=== PATIENT | female | born 1995 | race Caucasian/White ===

== ENCOUNTER 2021-09-06 08:07 | Outpatient (REF) | payer OTHER, SELFPAY ==
[2021-09-06 11:44] LABS: MANUAL DIFF FLAG NO
[2021-09-06 11:46] LABS: Appearance Urine CLEAR; Color Urine YELLOW; Glucose Urine UA NEG (NEG); Leukocyte Esterase Urine NEG (NEG); Nitrite Urine NEG (NEG); Urine Blood NEG (NEG); Urine Ketones NEG (NEG); Urine Protein NEG (NEG-TRACE)
[2021-09-06 11:47] LABS: Basophils Absolute Auto 0.1 X10*3/uL (0.0-0.2); Basophils Percent Auto 0.8 % (0-2); Eosinophils Absolute Auto 0.2 X10*3/uL (0.0-0.4); Eosinophils Percent Auto 2.9 % (0-4); Hematocrit 43.2 % (37.0-47.0); Hemoglobin 14.3 g/dl (12.0-16.0); Imm Gran Abs Auto 0.03 X10*3/uL (0.00-0.03); Imm Gran Pct Auto 0.4 % (0.0-0.4); Lymphocytes Absolute Auto 2.3 X10*3/uL (1.2-4.9); Lymphocytes Percent Auto 28.5 % (20-40); Mean Corpuscular HGB Conc 33.1 g/dl (31.0-35.0); Mean Corpuscular Hemoglobin 29.7 pg (27.0-33.0); Mean Corpuscular Volume 89.8 fL (80.0-98.0); Mean Platelet Volume 10.5 fL (9.4-12.3); Monocytes Absolute Auto 0.7 X10*3/uL (0.1-1.2); Neutrophils Absolute Auto 4.6 x10*3/uL (2.0-8.3); Neutrophils Percent Auto 58.4 % (45-73); Platelet Count 254 X10*3/uL (160-400); Red Blood Count 4.81 X10*6/uL (4.20-5.50); Red Cell Distribution Width 12.8 % (11.0-16.0); White Blood Count 7.9 X10*3/uL (4.8-10.8)
[2021-09-06 12:34] LABS: Alanine Aminotransferase 14 U/L (0-31); Albumin Level 4.3 g/dL (3.5-5.0); Alkaline Phosphatase 57 U/L (39-117); Anion Gap 12 (12-20); Aspartate Amino Transferase 15 U/L (5-31); Bilirubin Total 0.4 mg/dL (0.0-1.0); Blood Urea Nitrogen 12 mg/dL (9-16); Calcium 9.5 mg/dL (8.4-10.2); Carbon Dioxide 25 mmol/L (22-29); Chloride 105 mmol/L (96-108); Cholesterol 200 mg/dL; Estimated Glomerular Filt Rate > 60; Glucose Fasting 101 mg/dL (60-99); HDL Cholesterol 55 mg/dL; LDL Cholesterol Calculated 122 mg/dl; Sodium 137 mmol/L (135-145); Total Protein 7.6 g/dL (6.5-8.0); Triglycerides 119 mg/dL
== END 2021-09-06 08:08 | disposition home or self-care (01) ==
LOC: HO.HMGCLDS 08:07
PROVIDERS: Visit Provider Nurse Practitioner Family
DX: Z00.00 Encounter for general adult medical examination without abnormal findings (principal)
CPT/HCPCS: 36415; 80053; 80061; 81003; 84443; 85025

== ENCOUNTER 2021-11-05 09:47 | Outpatient (REF) | payer OTHER, SELFPAY ==
[2021-11-05 17:01] LABS: CT PCR NOT DETECTED (Not Detect.); NG PCR NOT DETECTED (Not Detect.)
[2021-11-06 12:54] LABS: BV Int Neg Control Negative (Negative); BV Int Pos Control Positive (Positive)
== END 2021-11-05 09:48 | disposition home or self-care (01) ==
LOC: HO.LAB 09:47
PROVIDERS: Visit Provider Advanced Practice Midwife
DX: Z01.419 Encounter for gynecological examination (general) (routine) without abnormal findings (principal); Z11.3 Encounter for screening for infections with a predominantly sexual mode of transmission
CPT/HCPCS: 87480; 87491; 87510; 87591; 87660; 88142

== ENCOUNTER 2022-05-15 13:21 | Outpatient (REF) | payer OTHER, SELFPAY ==
[2022-05-15 17:31] LABS: CT PCR NOT DETECTED (Not Detect.); NG PCR NOT DETECTED (Not Detect.)
[2022-05-16 09:38] LABS: BV Int Neg Control Negative (Negative); BV Int Pos Control Positive (Positive)
== END 2022-05-15 13:22 | disposition home or self-care (01) ==
LOC: HO.LNP 13:21
PROVIDERS: PCP Nurse Practitioner Family; Visit Provider Obstetrics & Gynecology
DX: B37.31 Acute candidiasis of vulva and vagina (principal)
CPT/HCPCS: 0353U; 87480; 87510; 87660

== ENCOUNTER 2022-06-18 07:55 | Outpatient (REF) | payer OTHER, SELFPAY ==
[2022-06-18 14:56] LABS: CT PCR NOT DETECTED (Not Detect.); NG PCR NOT DETECTED (Not Detect.)
[2022-06-19 13:00] LABS: BV Int Neg Control Negative (Negative); BV Int Pos Control Positive (Positive)
== END 2022-06-18 07:56 | disposition home or self-care (01) ==
LOC: HO.LNP 07:55
PROVIDERS: Visit Provider Obstetrics & Gynecology
DX: B37.31 Acute candidiasis of vulva and vagina (principal)
CPT/HCPCS: 0353U; 87480; 87510; 87660

== ENCOUNTER → 2022-07-25 10:20 | Outpatient (BNVA) | payer OTHER, SELFPAY | PROVIDERS: PCP Nurse Practitioner Family; Visit Provider Obstetrics & Gynecology ==

== ENCOUNTER 2023-01-14 14:58 | Outpatient (AMB) | payer OTHER, SELFPAY ==
--- NOTE | 2023-01-14 15:05 | A.OFFVIS_ITS ---
Intake Vital Signs 3 01/14/23 15:13 Height 5 ft Weight 145 lb 6 oz BMI 28.4 BP 131/89 Blood Pressure Location Lt brachial Position Sitting Pulse 67 Intake Visit Reasons: Lesion on back Intake Note: Patient is seen in office for evaluation and treatment of a lesion on the back. Patient c/o: onset for years, painful at times, unsure of increase/decrease, denies redness, discharge or other concerns Blockmason Required: No Accompanied by: Self / Same As Patient Allergies No Known Allergies Allergy (Verified 01/14/23 15:13) Medication List - Last Reconciled 01/14/23 by Taras Ordaz MD clotrimazole-betamethasone 1-0.05 % 1 appl topical BID 5 days lisdexamfetamine (Vyvanse) 20 mg PO DAILY norgestimate-ethinyl estradiol 0.18/0.215/0.25 mg-35 mcg (28) 1 tab PO DAILY HPI HPI Comments 2 History of Present Illness0 Details 27-year-old female patient presenting wi th a skin lesion of the left posterior shoulder. Lesion visit has been present since and remained fairly stable until recently when the became somewhat larger changed in shape. She is unable to see the lesion but by feel, seems to be increasing in size. She denies any bleeding or discharge from the lesion. [facility] Medical History ADHD Family History Mother Mental health disorder Social History Housing: Apartment Patient Tobacco Use Status: Former Tobacco user Quit Date: tried 1-2 years at 20 years old Tobacco use type: Cigarette e-Cigarette/Vaping Use: Never Used Second Hand Smoke Exposure: No service: No Current occupational status: employed Current occupation: [employer] Current occupational exposures/hazards: No Cognitive needs: No Hearing needs: No Vision needs: No Female Reproductive History Menstrual Age of Menarche: 17 Review of Systems Const All systems reviewed & are unremarkable except as noted in HPI and below Denies chills, Denies fever(s), Denies headache(s), Denies poor appetite and Denies weakness ENT Denies headache(s) Card Denies chest pain, Denies irregular heart rhythm, Denies palpitations and Denies dyspnea Resp Denies cough, Denies excessive phlegm production and Denies dyspnea GI Denies abdominal pain, Denies bloating, Denies change in bowel habits, Denies constipation, Denies heartburn, Denies diarrhea, Denies nausea and Denies vomiting Denies urinary frequency Musc Denies back pain, Denies muscle weakness and Denies numbness Skin/Breast Denies changing lesions and Denies unusual bruising Neuro Denies headache(s), Denies numbness, Denies paresthesias and Denies weakness Psych Denies anxiety and Denies depression Endo Denies palpitations Mat/Lymph Denies lymphadenopathy Physical Exam Const General: cooperative and no acute distress Nutritional Appearance: well nourished Orientation/consciousness: patient oriented x3 Limitations: no limitations HEENT Head: Yes normocephalic and Yes atraumatic Ears: hearing grossly normal bilaterally Resp Effort & Inspection: normal respiratory effort, no audible wheezes, no cough and no respiratory distress Cardio Jugular venous distension: no JVD GI Inspection: Yes normal to inspection Back/Spine/Pelvis Back/spine/pelvis image: 2 1. Soft, brown, pedunculated skin lesion with a base measuring approximately 3 mm in diameter. No ulceration or bleeding appreciated. Skin Other: Warm, dry, no rash Neuro General: patient oriented x3 Extrem General: Yes no clubbing, cyanosis or edema Assessment & Plan Assessment & Plan (1) Skin lesion of back: Code(s): L98.9 - Disorder of the skin and subcutaneous tissue, unspecified Plan 27-year-old female patient presenting with a skin lesion of the left upper back. This is been present for many years and is gradually changing in size and shape. On examination however it does appear benign with no suspicious elements. The color is brown and slightly elevated without ulceration or bleeding. The margins are symmetrical. Lesion can easily be removed as an office procedure under local anesthesia. Patient will think about this and call should she wish to have the lesion removed. Coding Level of Care Code New Pt Level 4 (37203) Diagnoses Skin lesion of back L98.9
[2023-01-14 15:13] VITALS: BP 131/89; PULSE 67; BMI 28.4
== END 2023-01-14 15:23 | disposition home or self-care (01) ==
PROVIDERS: PCP Nurse Practitioner Family; Visit Provider Surgery
DX: L98.9 Disorder of the skin and subcutaneous tissue, unspecified (principal)
CPT/HCPCS: 99204

== ENCOUNTER → 2023-01-14 14:58 | Outpatient (BNVA) | payer OTHER, SELFPAY | PROVIDERS: PCP Nurse Practitioner Family; Visit Provider Surgery ==

== ENCOUNTER 2023-05-19 07:36 | Outpatient (AMB) | payer OTHER, SELFPAY ==
[2023-05-19 07:43] VITALS: BP 112/68; BMI 28.5
--- NOTE | 2023-05-19 07:43 | MHC.OFFVIS ---
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 No complaints. 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 [employer] Current occupational exposures/hazards: No Sexual orientation: Straight/Heterosexual Gender identity: Female Cognitive needs: No Hearing needs: No Vision needs: No Female Reproductive History Menstrual Age of Menarche: 17 Date of last menstrual period: 04/21/23 control method: pills Review of Systems Const All systems reviewed & are unremarkable except as noted in HPI and below Card Reports as per HPI Resp Reports as per HPI GI Reports as per HPI and Reports no additional complaints Reports as per HPI Physical Exam Vital Signs: Last Vital Signs BP 112/68 05/19/23 07:43 BMI result Body Mass Index 28.5 Const General: cooperative, healthy appearing and comfortable Chest Chest palpation & inspection: normal inspection of the chest and normal palpation of entire chest wall Breast/axilla inspection: normal inspection of the breasts and normal inspection of the axillae Breast/axilla palpation: normal palpation of the breasts, normal palpation of the axillae and no axillary lymphadenopathy Resp Effort & Inspection: normal respiratory effort Auscultation: clear to auscultation bilaterally Percussion: percussion normal Cardio Palpation: normal PMI Rate: regular rate Rhythm: regular rhythm Heart sounds: no murmurs and no rubs Peripheral pulses: Peripheral pulses 2+ throughout GI Inspection: Yes normal to inspection Palpation (GI): Soft to palpation, nontender, no guarding, not rigid and No hepatosplenomegaly present Percussion: Yes normal to percussion Auscultation: normal bowel sounds Rectal Exam - Female: deferred General: Yes bladder normal to palpation External Female Exam: No lesion Speculum Exam - Vagina: normal appearance of the vagina, normal palpation, normal vaginal discharge and not erythematous Speculum Exam - Cervix: normal appearance of the cervix and normal palpation Bimanual exam- vagina & uterus: normal bimanual exam, normal palpation, uterine size normal, bladder normal to palpation, consistency normal and normal palpation Bimanual Exam- Adnexa, other: normal adnexae, no masses and no tenderness Assessment & Plan Assessment & Plan (1) Well woman exam with routine gynecological exam: Code(s): Z01.419 - Encounter for gynecological examination (general) (routine) without abnormal findings Plan: Pap smear not indicated this year. Counseled the patient about the recommended dietary allowance of 1000 mg of Calcium & 600 IU of vitamin D. The patient was instructed to perform monthly self-breast exams , to call for any changes in menstrual patterns and to schedule an annual exam in a year; all questions answered and the patient verbalized understanding. Coding Level of Care Code Est Pt Prev Care 18-39y(57801) Diagnoses Well woman exam with routine gynecological exam Z01.419
== END 2023-05-19 08:27 | disposition home or self-care (01) ==
LOC: HO.HWS 07:37
PROVIDERS: PCP Nurse Practitioner Family; Visit Provider Obstetrics & Gynecology
DX: Z01.419 Encounter for gynecological examination (general) (routine) without abnormal findings (principal)
CPT/HCPCS: 99395

== ENCOUNTER → 2023-05-19 07:36 | Outpatient (BNVA) | payer OTHER, SELFPAY | PROVIDERS: PCP Nurse Practitioner Family; Visit Provider Obstetrics & Gynecology ==

== ENCOUNTER 2023-06-05 11:06 | Outpatient (REF) | payer OTHER, SELFPAY ==
[2023-06-05 15:36] LABS: CT PCR NOT DETECTED (Not Detect.); NG PCR NOT DETECTED (Not Detect.)
[2023-06-06 08:52] LABS: BV Int Neg Control Negative (Negative); BV Int Pos Control Positive (Positive)
== END 2023-06-05 11:07 | disposition home or self-care (01) ==
LOC: HO.LNP 11:06
PROVIDERS: PCP Nurse Practitioner Family; Visit Provider Obstetrics & Gynecology
DX: B37.31 Acute candidiasis of vulva and vagina (principal); B37.2 Candidiasis of skin and nail; L23.9 Allergic contact dermatitis, unspecified cause
CPT/HCPCS: 0353U; 87480; 87510; 87660

== ENCOUNTER 2023-06-05 11:06 | Outpatient (AMB) | payer OTHER, SELFPAY ==
[2023-06-05 11:07] VITALS: BP 106/64; BMI 28.4
--- NOTE | 2023-06-05 11:07 | MHC.OFFVIS ---
Intake Vital Signs 06/05/23 11:07 Height 5 ft Weight 145 lb 8.081 oz BMI 28.4 BP 106/64 Intake Visit Reasons: ? BV Allergies No Known Allergies Allergy (Verified 05/19/23 07:48) HPI HPI Comments History of Present Illness Details Presenting complaining of recurrent frequent perineal and inguinal itching. The patient has had recurrent such symptoms over the last 1-2 years, 3 BV panel were negative for Deloris. Symptoms improve with Lotrisone external cream. 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 [employer] Current occupational exposures/hazards: No Sexual orientation: Straight/Heterosexual Gender identity: Female Cognitive needs: No Hearing needs: No Vision needs: No Female Reproductive History Menstrual Age of Menarche: 17 Review of Systems Const All systems reviewed & are unremarkable except as noted in HPI and below Physical Exam Vital Signs: Last Vital Signs BP 106/64 06/05/23 11:07 BMI result Body Mass Index 28.4 General: Yes no CVA tenderness External Female Exam: normal appearance of the urethra and other (Bilateral vulvar and inguinal redness) Speculum Exam - Vagina: normal appearance of the vagina, normal palpation, no lesions and no masses Speculum Exam - Cervix: normal appearance of the cervix, normal palpation, no lesions, no masses and nontender Bimanual exam- vagina & uterus: normal bimanual exam, normal palpation, uterine size normal, normal palpation, uterine shape normal, No Cervical tenderness present and non-tender Bimanual Exam- Adnexa, other: normal adnexae Back/Spine/Pelvis Back: no CVA tenderness Assessment & Plan Assessment & Plan (1) Skin candidiasis: Code(s): B37.2 - Candidiasis of skin and nail Plan: The patient was instructed to keep the affected area dry, use hair blower after showering, use baby powder without Talc and Desitin cream in addition to applying lotrisone cream BID x5 days (2) Allergic dermatitis: Code(s): L23.9 - Allergic contact dermatitis, unspecified cause Plan: Discussed with the patient's since 3 BV panel has been negative for candidia, her clinical scenario is suspicious of allergic dermatitis of the perineal area more so than vulvovaginal candidiasis. GC/CT and BV panel taken if positive for Deloris will treat accordingly, if negative, recommended to the patient to eliminate different potential allergens 1 at a time to try to identify specific allergen that is causing the allergy meanwhile use cortisone cream as needed to decrease the symptoms Orders: Orders CT NG by PCR Today B37.31 - Acute candidiasis of vulva and vagina Bacterial Vaginosis Panel Today B37.31 - Acute candidiasis of vulva and vagina Medications: New clotrimazole-betamethasone 1-0.05 % 1 appl topical BID 45 grams 0RF 5 days Coding Level of Care Code Est Pt Level 3 (05966) Diagnoses Skin candidiasis B37.2 Allergic dermatitis L23.9
== END 2023-06-05 13:28 | disposition home or self-care (01) ==
PROVIDERS: PCP Nurse Practitioner Family; Visit Provider Obstetrics & Gynecology
DX: B37.2 Candidiasis of skin and nail (principal); L23.9 Allergic contact dermatitis, unspecified cause
CPT/HCPCS: 99213

== ENCOUNTER 2023-06-10 09:18 | Outpatient (AMB) | payer OTHER, SELFPAY ==
--- NOTE | 2023-06-10 09:22 | MHC.PC.OV ---
Vital Signs 06/10/23 09:24 Height 5 ft Weight 149 lb BMI 29.1 BP 120/80 Blood Pressure Location Lt brachial Position Sitting Pulse 101 H Pulse Source Pulse Oximeter Pulse Oximetry (%) 99 Oxygen Delivery Method Room Air Intake Visit Reasons: OV - possible skin allergy/hyperhidrosis Intake Note: Patient here to talk about excess sweat, numbness in toes. Allergies No Known Allergies Allergy (Verified 06/10/23 12:24) Medication List - Last Reconciled 06/10/23 by FABIO Dupree clotrimazole-betamethasone 1-0.05 % 1 appl topical BID 5 days clotrimazole-betamethasone 1-0.05 % 1 appl topical BID 5 days glycopyrronium tosylate 2.4% 1 appl topical DAILY PRN lisdexamfetamine (Vyvanse) 20 mg PO DAILY metronidazole 500 mg PO BID 7 days norgestimate-ethinyl estradiol 0.18/0.215/0.25 mg-35 mcg (28) 1 tab PO DAILY Tobacco use date assessed: 06/10/23 Dental Screening Dental Screen Date: 06/10/23 Did you have a dental visit in the last 12 months?: Yes Did you have a dental problem in the last 6 months where you did not have access to dental care?: No Was dental information given to patient?: Patient has dentist HPI OV - possible skin allergy/hyperhidrosis HPI Details Pt reports increased sweating especially of her axillary regions. She has tried multiple kinds of deodorant/antiperspirants which have not helped. Will send glycopyrronium. If this does not work will most likely refer to derm. Pt also c/o cold feet. Denies any bluish hue or discoloration. Encouraged pt to wear socks. 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 How often do you have a drink containing alcohol?: Never 3. How often do you have six or more drinks on one occasion?: Never Total Score: 0 Score Reviewed/Action Taken: No ISAMAR-7 AMB Questionnaire ISAMAR-7 Date ISAMAR - 7 assessed: 09/06/21 Source: Developed by Drs. Tee Gannon, Dennise Russ, Dario Solares and colleagues, with an educational seamus from [employer]. Review of Systems Const Reports as per HPI Physical exam (Primary Care) Vital Signs: Last Vital Signs Pulse 101 H 06/10/23 09:24 BP 120/80 06/10/23 09:24 Pulse Ox 99 06/10/23 09:24 Oxygen Delivery Method Room Air 06/10/23 09:24 BMI result Body Mass Index 29.1 Tobacco/Smoking Status: Tobacco use Status Tobacco use date assessed 06/10/23 06/10/23 09:27 Patient Tobacco Use Status Former Tobacco user 06/10/23 09:23 Tobacco use type Cigarette 06/10/23 09:23 e-Cigarette/Vaping Use Never Used 06/10/23 09:23 Thrive Assessment: Date of Thrive Assessment Date Thrive assessed 09/06/21 06/10/23 09:23 Const General: cooperative Orientation/consciousness: patient oriented x3 Resp Effort & Inspection: normal respiratory effort Auscultation: clear to auscultation bilaterally Cardio Rate: regular rate Rhythm: regular rhythm Heart sounds: S1 normal heart sound present and S2 normal heart sound present Neuro General: patient oriented x3 Extrem Other: bilat feet: toes faintly cold, + cap refill, + dorsalis pedis pulses, no discoloration Psych Appearance: grossly normal Mental Status: mental status grossly normal Speech and movement: Normal speech and movement present Affect: normal affect Attitude: cooperative Thought process: Normal thought process present Thought content: Normal thought content present Insight: Good insight present (Psych) Judgement: Good judgement present (Psych) Assessment and Plan Assessment & Plan (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 Scribed for FABIO Lundberg by [facility] medical collections, on 06/10/2023 at 09:55 EST. Medications: New glycopyrronium tosylate 2.4% 1 appl topical DAILY PRN 30 ea 2RF excessive sweating Coding Level of Care Code Est Pt Level 3 (56025) Diagnoses Axillary hyperhidrosis L74.510 Cold feet R20.9
[2023-06-10 09:24] VITALS: BP 120/80; PULSE 101; O2SAT 99; BMI 29.1
== END 2023-06-10 12:08 | disposition home or self-care (01) ==
PROVIDERS: PCP Nurse Practitioner Family; Visit Provider Nurse Practitioner Family
DX: L74.510 Primary focal hyperhidrosis, axilla (principal); R20.9 Unspecified disturbances of skin sensation
CPT/HCPCS: 99213

== ENCOUNTER 2023-07-22 12:47 | Outpatient (REF) | payer OTHER, SELFPAY ==
[2023-07-22 16:45] LABS: Bacterial Vaginosis PCR NEGATIVE (Negative); Candida Group PCR NOT DETECTED (Not Detect); Candida glab krusei PCR NOT DETECTED (Not Detect); Trichomonas vaginalis PCR NOT DETECTED (Not Detect)
[2023-07-22 17:17] LABS: CT PCR NOT DETECTED (Not Detect.); NG PCR NOT DETECTED (Not Detect.)
== END 2023-07-22 12:48 | disposition home or self-care (01) ==
LOC: HO.LNP 12:47
PROVIDERS: PCP Nurse Practitioner Family; Visit Provider Obstetrics & Gynecology
DX: Z20.2 Contact with and (suspected) exposure to infections with a predominantly sexual mode of transmission (principal)
CPT/HCPCS: 0352U; 0353U

== ENCOUNTER 2023-07-22 12:47 | Outpatient (AMB) | payer OTHER, SELFPAY ==
--- NOTE | 2023-07-22 12:55 | MHC.OFFVIS ---
Vital Signs 07/22/23 12:58 Height 5 ft Weight 147 lb 11.355 oz BMI 28.8 BP 112/64 Intake Visit Reasons: vaginal itch Information Interpreted: non-clinical & clinical Mobile Home Technician: Mobile Home Technician Present (Christin ENCISO) Accompanied by: Self / Same As Patient Allergies No Known Allergies Allergy (Verified 07/22/23 13:02) HPI Comments Details: Presenting complaining of bilateral vulvovaginal itching that started yesterday. The patient was seen on 05/30 with vulvovaginal itching not associated with any vaginal discharge or foul odor. BV panel was negative for Deloris and positive for Gardnerella, the patient was prescribed Lotrisone cream b.i.d. for 5 days and metronidazole p.o. b.i.d. for 7 days . Her symptoms improved within few days and since then she has used different detergents, different underwear and tried to avoid different possible allergens and she did not have any recurrence of her vulvovaginal symptoms till 2 days ago she developed recurrent vulvovaginal itching with no associated vaginal discharge or foul odor [facility] Medical History ADHD Family History Mother Mental health disorder Social History Housing: Apartment Patient Tobacco Use Status: Former Tobacco user Quit Date: tried 1-2 years at 20 years old Tobacco use type: Cigarette e-Cigarette/Vaping Use: Never Used Second Hand Smoke Exposure: No service: No Current occupational status: employed 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 [employer] Current occupational exposures/hazards: No Sexual orientation: Straight/Heterosexual Gender identity: Female Cognitive needs: No Hearing needs: No Vision needs: No Female Reproductive History Menstrual Age of Menarche: 17 Review of Systems Const All systems reviewed & are unremarkable except as noted in HPI and below Physical Exam General: Yes no CVA tenderness External Female Exam: normal external appearance and normal appearance of the urethra Speculum Exam - Vagina: normal appearance of the vagina, normal palpation, no lesions and no masses Speculum Exam - Cervix: normal appearance of the cervix, normal palpation, no lesions, no masses and nontender Bimanual exam- vagina & uterus: normal bimanual exam, normal palpation, uterine size normal, normal palpation, uterine shape normal, No Cervical tenderness present and non-tender Bimanual Exam- Adnexa, other: normal adnexae Back/Spine/Pelvis Back: no CVA tenderness Assessment & Plan Assessment & Plan (1) Vulvovaginal itching: Code(s): L29.2 - Pruritus vulvae Category: Medical Plan: GC/CT with BV panel collected will check the results and treat accordingly if or are negative, the diagnosis will be more suspicious for contact dermatitis. All questions answered, the patient verbalized understanding Coding Level of Care Code Est Pt Level 3 (70524) Diagnoses Vulvovaginal itching L29.2
[2023-07-22 12:58] VITALS: BP 112/64; BMI 28.8
== END 2023-07-22 14:37 | disposition home or self-care (01) ==
LOC: HO.HWS 12:48
PROVIDERS: PCP Nurse Practitioner Family; Visit Provider Obstetrics & Gynecology
DX: L29.2 Pruritus vulvae (principal)
CPT/HCPCS: 99213

== ENCOUNTER 2023-09-10 13:15 | Outpatient (AMB) | payer OTHER, SELFPAY ==
[2023-09-10 13:55] VITALS: BP 118/70; PULSE 70; TEMP 36.7; O2SAT 99; BMI 29.3
--- NOTE | 2023-09-10 13:55 | AM.OFFWIN_ITS ---
Intake Vital Signs 09/10/23 13:55 Height 5 ft Weight 150 lb BMI 29.3 BP 118/70 Blood Pressure Location Rt brachial Position Sitting Pulse 70 Pulse Source Pulse Oximeter Temp 98.0 F Temp Source Temporal Artery Scan Pulse Oximetry (%) 99 Intake Visit Reasons: EP head pain dizziness Intake Note: pt is here for head pain with dizziness Patient Tobacco Use Status: Former Tobacco user Allergies No Known Allergies Allergy (Verified 09/10/23 13:55) Do you need a note to return to daycare/school/sports/work: No HPI HPI Comments History of Present Illness Details 28 y/o female patient who presents to [facility] walk in clinic with c/o generalized headaches associated with Dizziness. Pt does endorse being under a lot of stress at work - they're short staffed and she ends of doing the work of 2 people. She also does endorse not sleeping well at night - c/o night-chávez and frequent waking up. H/o Depression and Anxiety, currently on medications. Denies SA or SI. 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 General: comfortable and no acute distress Orientation/consciousness: patient oriented x3 HEENT Head: Yes normocephalic Neuro General: patient oriented x3, gait normal and moves all extremities Psych Speech and movement: Normal speech and movement present Affect: normal affect Attitude: cooperative Assessment & Plan Assessment & Plan (1) Generalized headaches: Code(s): R51.9 - Headache, unspecified Plan: Rest in a quite dark room Acetaminophen for pain relief. Work with Mental health Therapist Meclizine for Dizziness. Medications: New meclizine 25 mg PO BID PRN 30 tabs 0RF dizziness R42 - Dizziness and giddiness acetaminophen 1,000 mg (2 x 500 mg) PO Q6H PRN 30 caps 0RF pain (scale score 7- 10) R51.9 - Headache, unspecified Coding Level of Care Code Est Pt Level 3 (35859) Diagnoses Generalized headaches R51.9 Time Spent (min) 15
== END 2023-09-10 14:30 | disposition home or self-care (01) ==
PROVIDERS: PCP Nurse Practitioner Family; Visit Provider Nurse Practitioner Family
DX: R51.9 Headache, unspecified (principal)
CPT/HCPCS: 99213

== ENCOUNTER 2024-07-06 13:38 | Outpatient (AMB) | payer OTHER, SELFPAY ==
[2024-07-06 13:42] VITALS: BP 116/70; PULSE 68; O2SAT 97; BMI 30.7
--- NOTE | 2024-07-06 13:42 | MHC.PC.OV ---
Vital Signs 07/06/24 13:42 Height 5 ft Weight 157 lb BMI 30.7 BP 116/70 Blood Pressure Location Rt brachial Position Sitting Pulse 68 Pulse Source Pulse Oximeter Pulse Oximetry (%) 97 Oxygen Delivery Method Room Air Intake Visit Reasons: PE Clinical Appeals Rn Required: No Accompanied by: Self / Same As Patient Allergies No Known Allergies Allergy (Verified 07/06/24 13:52) Medication List - Last Reconciled 07/06/24 by JUNIOR Dupree- acetaminophen 1,000 mg (2 x 500 mg) PO Q6H PRN clonazepam mg PO clotrimazole-betamethasone 1-0.05 % 1 appl topical BID 5 days escitalopram oxalate 20 mg PO DAILY lisdexamfetamine (Vyvanse) 20 mg PO DAILY meclizine 25 mg PO BID PRN norgestimate-ethinyl estradiol 0.18/0.215/0.25 mg-0.035mg (28) 1 tab PO DAILY Tobacco use date assessed: 07/06/24 Dental Screening Dental Screen Date: 07/06/24 Did you have a dental visit in the last 12 months?: Yes Did you have a dental problem in the last 6 months where you did not have access to dental care?: No Was dental information given to patient?: Patient has dentist HPI PE HPI Details History of Present Illness The patient is a 29-year-old female presenting for a wellness visit as part of her annual physical examination. She reports maintaining an active lifestyle, balancing two jobs alongside practicing yoga and attending the gym regularly. Her mental health care is ongoing, as she regularly sees both a psychiatrist and a therapist, about which she feels positive and denies any concerning symptoms such as suicidal or homicidal ideation. Additionally, she adheres to regular gynecological care. Health Maintenance - Patient encouraged to receive lab testing in the near future. - Regular exercise, including yoga and gym, ongoing. - Regular mental health care visits. Social History - Employed in dual roles. - Engages in regular exercise activities, including yoga. - Receives regular psychiatric and therapeutic support. Review of Systems - General: Reports feeling well. - Psychiatric: Denies suicidal ideation, denies homicidal ideation. - Cardiovascular: Denies chest pain. - Respiratory: Denies shortness of breath. - Gastrointestinal: Denies abdominal pain, denies blood in stool, denies constipation, denies diarrhea. - Urinary: Denies urinary issues. Physical Exam General: Cooperative, healthy appearing, comfortable, no acute distress and well developed Orientation: Patient oriented x3 Limitations: No limitations Head: Normal to inspection Ears: Hearing grossly normal bilaterally Nose: Normal external nose present Face and sinus: Normal facial exam Eyes: Appearance normal, both eyes and all related structures Neck: Normal visual inspection and Yes full ROM Respiratory: Normal respiratory effort and able to speak in complete sentences. Clear to auscultation bilaterally Cardiovascular: Regular rate and rhythm. Normal S1 and S2 GI: Normal to inspection. Soft to palpation and nontender Skin: No rashes or lesions noted Neuro: Patient oriented x3 Extremities: Normal to inspection Results Plan The patient will continue her current wellness practices, including regular physical activity. No adjustments are needed in her regular psychiatric and therapy sessions. Recommended obtaining lab tests in the near future and maintaining regular gynecological visits. Follow-up for the next annual examination or sooner if new issues develop. Discussion Notes I discussed with the patient the importance of maintaining her current exercise regimen and attending regular psychiatric and therapy sessions to support her overall wellness. We reviewed the value of laboratory evaluations to ensure continued health, reiterating the benefits of regular gynecological care. I encouraged her to return in one year for her next physical examination or earlier if any new concerns need to be addressed. Patient Instructions - Continue exercising, including yoga and gym visits. - Maintain regular appointments with psychiatrist and therapist. - Return for lab tests soon. - Keep up with regular gynecological check-ups. - Schedule follow-up for the next year or sooner if any new concerns arise. 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 1. Little interest or pleasure in doing things: not at all 2. Feeling down, depressed, or hopeless: not at all 3. Trouble falling or staying asleep, or sleeping too much: not at all 4. Feeling tired or having little energy: several days 5. Poor appetite or overeating: several days 6. Feeling bad about yourself - or that you are a failure or have let yourself or your family down: not at all 7. Trouble concentrating on things, such as reading the newspaper or watching television: several days 8. Moving or speaking so slowly that other people could have noticed. Or the opposite - being so fidgety or restless that you have been moving around a lot more than usual: not at all 9. Thoughts that you would be better off or of hurting yourself in some way: not at all Total score: 3 Depression Screening Interpretation: Negative (denies any si or hi, has a psychiatrist and therapist) Depression Screening Done: Yes 51704 - PHQ-9 Billing: Yes Source: Developed by Drs. Tee Gannon, Dennise Russ, Dario Solares and colleagues, with an educational seamus from [employer]. Thrive Questionnaire Date Thrive assessed: 07/03/24 I am a: Patient What is your living situation today?: I have a steady place to live Within the past 12 months, did the food you bought not last and you didn't have the money to get more?: I choose not to answer this question Within the past 12 months, did you worry whether your food would run out before you got money to buy more?: I choose not to answer this question Do you have trouble paying for medicines?: I choose not to answer this question Do you have trouble getting transportation to medical appointments?: I choose not to answer this question Do you have trouble paying your heating and electricity bill?: I choose not to answer this question Do you have trouble taking care of your child, family member or friend?: I choose not to answer this question Do you have trouble with day-to-day activities such as bathing, preparing meals, shopping, managing finances, etc.?: I choose not to answer this question Are you currently unemployed and looking for a job?: I choose not to answer this question Are you interested in more education?: I choose not to answer this question Please select the resources that you would like help with: None Currently or been in a relationship where the following occur: No concerns reported THRIVE Score: 0 AUDIT C Alcohol Use Questionnaire (AUDIT-C) 1. How often do you have a drink containing alcohol?: Never 3. How often do you have six or more drinks on one occasion?: Never Total Score: 0 Score Reviewed/Action Taken: Yes ISAMAR-7 AMB Questionnaire ISAMAR-7 Date ISAMAR - 7 assessed: 07/06/24 Feeling nervous, anxious, or on edge: 1 = Several days Not being able to stop or control worryin = Several days Worrying too much about different things: 1 = Several days Trouble relaxin = Several days Being so restless that it is hard to sit still: 1 = Several days Becoming easily annoyed or irritable: 1 = Several days Feeling afraid as if something awful might happen: 1 = Several days Total ISAMAR-7 score (0-4 normal; 5-9 mild; 10-14 moderate; 15-21 severe): 7 Source: Developed by Drs. Tee Gannon, Dennise Russ, Dario Solares and colleagues, with an educational seamus from [employer]. ISAMAR-7 Assessment Billing ISAMAR-7 Assessment Tool: ISAMAR-7 Assessment 97306 Physical exam (Primary Care) Vital Signs: Last Vital Signs Pulse 68 07/06/24 13:42 BP 116/70 07/06/24 13:42 Pulse Ox 97 07/06/24 13:42 Oxygen Delivery Method Room Air 07/06/24 13:42 BMI result Body Mass Index 30.7 Tobacco/Smoking Status: Tobacco use Status Tobacco use date assessed 07/06/24 07/06/24 13:43 Patient Tobacco Use Status Former Tobacco user 07/06/24 13:43 Tobacco use type Cigarette 07/06/24 13:43 e-Cigarette/Vaping Use Never Used 07/06/24 13:43 PHQ-9: PHQ-9 Score PHQ-9: Total score 3 07/06/24 13:52 Depression Screening Interpretation: Negative (denies any si or hi, has a psychiatrist and therapist) Thrive Assessment: Date of Thrive Assessment Date Thrive assessed 07/03/24 07/06/24 13:43 Currently or been in a relationship where the following occur: No concerns reported Coding Level of Care Code Est Pt Prev Care 18-39y(69779) Diagnoses Physical exam Z00.00 Additional Codes ISAMAR-7 Assessment Billing - ISAMAR-7 Assessment Tool: ISAMAR-7 Assessment 62246 ([id number]) PHQ-9 - 72693 - PHQ-9 Billing: Yes ([id number]) Assessment & Plan Assessment & Plan (1) Physical exam: Code(s): Z00.00 - Encounter for general adult medical examination without abnormal findings Category: Medical Plan . Orders: Orders TSH reflex Free T4 Today Z00.00 - Encounter for general adult medical examination without abnormal findings Lipid Panel Today Z00.00 - Encounter for general adult medical examination without abnormal findings Complete Blood Count Auto Diff Today Z00.00 - Encounter for general adult medical examination without abnormal findings Comprehensive [place]. Panel Fast Today Z00.00 - Encounter for general adult medical examination without abnormal findings UA CC w/rflx Micro + Cult Today Z00.00 - Encounter for general adult medical examination without abnormal findings
--- OUTSIDE RECORDS SUMMARY | 2024-07-06 15:43 | XMS_ITS | Encounter Summary ---
Author Organization [facility] Address [address] [place] [id number] Phone Care Team Providers Care Microfilm Technician Name Role Phone Corrina Alvarez MD Primary Care Provider [phone] Encounter Details Date Type Department Care Team (Late st Contact Info) Description 10/24/2016 Conversion Encounter [facility] [place] [address] [place] [address] Social History Tobacco Use Types Packs/Day Years Used Date Smoking Tobacco: Never Comments:Never smoker Comments Unknown Sex and Gender Information Value Date Recorded Sex Assigned at Not on file Legal Sex Female 4:57 PM EDT Gender Identity Not on file Sexual Orientation Not on file documented as of this encounter Plan of Treatment Not on file documented as of this encounter Visit Diagnoses Not on filedocumented in this encounter Care Teams Microfilm Technician Relationship Specialty Start Date End Date Corrina Alvarez MD [address] [place] [address] PCP - General 10/18/16 documented as of this encounter
--- OUTSIDE RECORDS SUMMARY | 2024-07-06 15:43 | XMS_ITS | Encounter Summary ---
Author Organization [facility] Address [address] [place] [address] Phone Care Team Providers Care Airfield Defence Guard Name Role Phone Corrina Alvarez MD Primary Care Provider Encounter Details Date Type Department Care Team (Late st Contact Info) Description 07/22/2014 Documentation [facility] [place] Family Medicine [address] [place] [address] Family Medicine, Physician [address] [place], [place] [phone] Social History Tobacco Use Types Packs/Day Years Used Date Smoking Tobacco: Never Assessed Comments Unknown Sex and Gender Information Value Date Recorded Sex Assigned at Not on file Legal Sex Female 4:57 PM EDT Gender Identity Not on file Sexual Orientation Not on file documented as of this encounter Plan of Treatment Not on file documented as of this encounter Visit Diagnoses Not on filedocumented in this encounter Care Teams Airfield Defence Guard Relationship Specialty Start Date End Date Corrina Alvarez MD [address] [place] [address] [place] [address] PCP - General 10/18/16 documented as of this encounter
--- OUTSIDE RECORDS SUMMARY | 2024-07-06 15:43 | XMS_ITS | Encounter Summary ---
Author Organization [facility] Address [address] [place] [address] Phone Care Team Providers Care Supervisor Properties Name Role Phone Corrina Alvarez MD Primary Care Provider [phone] Encounter Details Date Type Department Care Team (Late st Contact Info) Description 07/27/2012 Documentation [facility] Family Medicine [address] [place] [address] Family Medicine, Physician [address] [place], [place] [id number] Social History Tobacco Use Types Packs/Day Years [...] on filedocumented in this encounter Care Teams Supervisor Properties Relationship Specialty Start Date End Date Corrina Alvarez MD [address] [place] [address] [place] [address] PCP - General 10/18/16 documented as of this encounter
--- OUTSIDE RECORDS SUMMARY | 2024-07-06 15:43 | XMS_ITS | Clinical Summary ---
Author Organization [facility] Address [address] [place] [address] Phone Care Team Providers Care Radar Engineering Teacher Name Role Phone Corrina Alvarez MD Primary Care Provider [phone] Immunizations Immunization Administration Dates Next Due DTaP 5 07/19/2002, 9,1997, 998,1997 HPV, Quadrivalent 07/08/2012,11/14/2010,10/24/19 10 Hep A, ped/adol 06/22/2014 Hep B, ped/adol 02/18/1998,1997,1997 Hib (PRP-T) 11/23/1998, 8,1997, 998 IPV 07/19/2002, 9,1997, 998 Influenza, intranasal, quadrivalent 03/07/2014 MMR 07/19/2002,08/22/1998 Meningococcal Conj (Menactra) MCV4P 06/22/2014,0 10/23/2009 Tdap 10/23/2009 Varicella 08/22/1998 Family History Relation Name Status Comments Father Father: Elevate d cholesterol, Deafness Mother Alive Mother: Alive a nd well Other No family histo ry of Diabetes mellitus, Family history of Cancer - skin (dad), PGF Brain, No family history of Developmental dislocation of hip, Family history of Deafness, No family history of Asthma, No family history of ADD/ADHD, No family history of Strabismus, No family history of Obesity, Family history of Hyperlipidemia, No family history of Seizure disorder, No family history of CVA (Stroke), Family history of cardiac, Family history of Migraines Social History Tobacco Use Types Packs/Day Years Used Date Smoking Tobacco: Never Comments:Never smoker Comments Unknown Sex and Gender Information Value Date Recorded Sex Assigned at Not on file Legal Sex Female 4:57 PM EDT Gender Identity Not on file Sexual Orientation Not on file Last Filed Vital Signs Vital Sign Reading Time Taken Comments Blood Pressure 113/71 09/28/2014 12:00 AM EDT Pulse 79 09/28/2014 12:00 AM EDT Temperature 37.1 ??C (98.8 ??F) 07/05/2014 1 2:00 AM EDT Respiratory Rate - - Oxygen Saturation - - Inhaled Oxygen Concentration - - Weight 63.9 kg (140 lb 12.8 oz) 015 12:00 AM EDT Height 153 cm (5' 0.25 ) 09/28/2014 12: 00 AM EDT Body Mass Index 27.27 09/28/2014 12:00 AM EDT Plan of Treatment Health Maintenance Due Date Last Done Comments Varicella Vaccines (2 of 2 - 2-dose childhood series) 04/04/2014 08/22/1998 Hepatitis A Vaccines (2 of 2 - 2-dose series) 12/22/2014 06/22/2014 DTaP,Tdap,and Td Vaccines (7 - Td or Tdap) 10/24/2019 10/23/2009, 07/19/2002, 11/23/1998, Additional history exists Influenza Vaccines (#1) 2023 03/07/2014 COVID-19 Vaccine ( season) 2023 Hepatitis B Vaccines Completed 02/18/1998, 1997, 1997 HIB Vaccines Completed 11/23/1998, 11/08, 1997, Additional history exists IPV Vaccines Completed 07/19/2002, 05/08, 1997, Additional history exists MMR Vaccines Completed 07/19/2002, 08/22/1998 HPV Vaccines Completed 07/08/2012, 09/2010, 10/23/2009 Meningococcal Vaccine Completed 06/22/2014, 010 Men B Vaccine Aged Out No longer elig ible based on patient's age to complete this topic Pneumococcal Vaccine Aged Out No long er eligible based on patient's age to complete this topic Procedures * Due to [place] state law, this organization might not be sharing sensitive test results. Procedure Name Priority Date/Time Associated Diagnosis Comments CHLAMYDIA AND GONORRHEA, AMPLIFIED Routine 09/29/2014 2:26 PM EDT from Last 3 Months or Most Recently Relevant to Health Maintenance Results * Due to [place] state law, this organization might not be sharing sensitive test results. * Chlamydia and Gonorrhoea, Amplified (09/29/2014 2:26 PM EDT) URINE CHLAMYDIA AMP PROBE NEGATIVE [facility] Comment: No Chlamydia Trachomatis RNA detected in this patient's sample (REFERENCE RANGE/NORMAL VALUE: NOT DETECTED) URINE GC AMP PROBE NEGATIVE [facility] Comment: No Neisseria Gonorrhoeae RNA detected in this patient's sample (REFERENCE RANGE/NORMAL VALUE: NOT DETECTED) NOTE: This test uses manager medical affairs-mediated amplification method to detect rRNA from C.Trachomatis and N.Gonorrhoeae. A negative result does not preclude infection. In the case of a negative urine result, testing of an endocervical(female) or urethral(male) specimen is recommended if there is high clinical suspicion of infection. The performance characteristics of this test have not been evaluated in children. The Aptima Combo2 assay is not intended for the evaluation of suspected sexual abuse or for other medico-legal indications. The ordering provider should assess if the patient had consensual sex without risk of sexual abuse. Consult the [facility] if needed. Contact phone number . Therapeutic failure or success cannot be determined with the Aptima Combo2 assay since nucleic acid may persist following appropriate antimicrobial therapy. The Centers for Disease Control and Prevention (CDC) recommends confirmatory retesting using culture or a different nucleic acid amplification test when positive results occur, if indicated. Testing performed or reported by [facility], a Service of [facility], [address] [place] [id number] Shay Du MD, PhD, Fur Dressing Supervisor 09/29/2014 2:26 PM EDT Narrative [facility] - 09/29/2014 2:26 PM EDT URINE CHLAMYDIA GC AMP PROBE us Corrina Alvarez MD LAB MICROBIOLOGY - GENERAL ORDER SALLIE Final Result [facility] [address] [place] [address], from Last 3 Months or Most Recently Relevant to Health Maintenance Care Teams Radar Engineering Teacher Relationship Specialty Start Date End Date Corrina Alvarez MD [address] [place] [address] [place] [address] PCP - General 10/18/16
== END 2024-07-06 14:19 | disposition home or self-care (01) ==
LOC: HO.HMCC 13:39
PROVIDERS: PCP Nurse Practitioner Family; Visit Provider Nurse Practitioner Family
DX: Z00.00 Encounter for general adult medical examination without abnormal findings (principal)

== ENCOUNTER → 2024-07-06 13:38 | Outpatient (BNVA) | payer OTHER, SELFPAY | PROVIDERS: PCP Nurse Practitioner Family; Visit Provider Nurse Practitioner Family | DX: Z00.00 Encounter for general adult medical examination without abnormal findings (principal) | CPT/HCPCS: 96127 ==

== ENCOUNTER 2024-09-21 08:41 | Outpatient (AMB) | payer OTHER, SELFPAY ==
--- OUTSIDE RECORDS SUMMARY | 2024-09-21 08:48 | XMS_ITS | Encounter Summary ---
Author Organization [facility] Address [address] [place] [phone] Phone Care Team Providers Care Siene Maker Name Role Phone Corrina Alvarez MD Primary Care Provider [phone] Encounter Details Date Type Department Care Team (Late st Contact Info) Description 07/22/2014 Documentation [facility] [place] [address] [place] [address] Family Medicine, Physician [address] [place], [place] [phone] Social History Tobacco Use Types Packs/Day Years [...] on filedocumented in this encounter Care Teams Siene Maker Relationship Specialty Start Date End Date Corrina Alvarez MD [address] [place] [address] [place] [address] PCP - General 10/18/16 documented as of this encounter
--- NOTE | 2024-09-21 08:53 | MHC.OFFVIS ---
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 Patient reports she rolled her ankle in a pot whole and she was wear wedges. She expresses that she was taking ibuprofen with mild relief and a ankle brace with relief. Patient notices that her pain is on the lateral aspect of the foot and ankle. Denies numbness and tingling in toes. 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 Cherry is a 29-year-old female who presents for evaluation of a left ankle injury that she sustained roughly 4 weeks ago while in [place]. She states that she was wearing wedge heels and stepped into a pothole inverting the left ankle. She felt immediate pain and had difficulty with weight-bearing due to pain. She immediately started icing the area. Over the past few weeks she reports that her pain has continued to persist. She has been taking ibuprofen with some relief. Additionally, she has been wearing an ankle brace which has been helping. She denies any numbness or tingling. 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 [employer] Current occupational exposures/hazards: No Sexual orientation: Straight/Heterosexual Gender identity: Female Cognitive needs: No Hearing needs: No Vision needs: No Female Reproductive History Menstrual Age of Menarche: 17 Review of Systems Const All systems reviewed & are unremarkable except as noted in HPI and below Physical Exam Vital Signs: BMI result Body Mass Index 30.3 Const General: cooperative, healthy appearing and no acute distress Resp Effort & Inspection: normal respiratory effort and able to speak in complete sentences Extrem Other: Left foot and ankle normal to inspection. No ecchymosis, erythema or edema. Tenderness to palpation at the base of the 5th metatarsal. Able to perform full ankle range of motion in all planes without difficulty. Sensation intact. Assessment & Plan Assessment & Plan (1) Fracture of base of fifth metatarsal bone of left foot: Code(s): S92.352A - Displaced fracture of fifth metatarsal bone, left foot, initial encounter for closed fracture Category: Medical Plan Ms. Cherry is a 29-year-old female who presents for evaluation of a left ankle injury that she sustained roughly 4 weeks ago while in [place]. She states that she was wearing wedge heels and stepped into a pothole inverting the left ankle. She felt immediate pain and had difficulty with weight-bearing due to pain. She immediately started icing the area. Over the past few weeks she reports that her pain has continued to persist. She has been taking ibuprofen with some relief. Additionally, she has been wearing an ankle brace which has been helping. She denies any numbness or tingling. While in the office today, x-rays of the left ankle were obtained and there is an abnormality of the base of the 5th metatarsal where she has associated tenderness to palpation. At this time a walking boot is not recommended as she is 4 weeks status post injury. She may continue wearing the brace that she has at home during activities. I advised that at the 8 week annette she should begin to discontinue the brace. Physical therapy was discussed but deferred at this time due to the patient's full range of motion of the ankle. She may resume activities as tolerated using pain as her guide. She will follow up as needed. X-rays of the left ankle which were obtained while in the office today and were reviewed by me, Zahida Mcclure PA-C, revealed deformity at the base of the 5th metatarsal likely associated with fracture. Orders: Orders XR ankle LT min 3V Today M25.579 - Pain in unspecified ankle and joints of unspecified foot Coding Level of Care Code New Pt Level 3 (91779) Diagnoses Fracture of base of fifth metatarsal bone of left foot S92.508T
[2024-09-21 08:56] VITALS: BMI 30.3
== END 2024-09-21 09:08 | disposition home or self-care (01) ==
LOC: HO.HOS 08:41
PROVIDERS: PCP Nurse Practitioner Family; Visit Provider Physician Assistant
DX: S92.352A Displaced fracture of fifth metatarsal bone, left foot, initial encounter for closed fracture (principal)
CPT/HCPCS: 99203

== ENCOUNTER 2024-09-21 08:42 | Outpatient (REF) | payer OTHER, SELFPAY ==
--- NOTE | ~2024-09-21 | XR_ITS ---
EXAMINATION: XR ANKLE, LEFT CLINICAL INFORMATION: M25.579 - Pain in unspecified ankle and joints of unspecified foot COMPARISON: None available. TECHNIQUE: AP, lateral, and mortise views of the left ankle. FINDINGS: No acute cortical disruption or malalignment. No lytic or blastic lesions. No gross joint effusion no subcutaneous emphysema. No metallic or radiopaque foreign body. XR/XR ankle LT min 3V IMPRESSION: Normal x-ray. Electronically signed by: Abiodun Watson MD 09/21/2024 08:57 AM EDT
== END 2024-09-21 08:43 | disposition home or self-care (01) ==
LOC: HO.HOSX 08:42
PROVIDERS: Visit Provider Physician Assistant
DX: S92.352A Displaced fracture of fifth metatarsal bone, left foot, initial encounter for closed fracture (principal); M25.572 Pain in left ankle and joints of left foot; W01.0XXA Fall on same level from slipping, tripping and stumbling without subsequent striking against object, initial encounter; Y92.89 Other specified places as the place of occurrence of the external cause; Y93.89 Activity, other specified; Y99.8 Other external cause status
CPT/HCPCS: 73610

== ENCOUNTER → 2024-09-21 08:44 | Outpatient (BNV) | payer OTHER, SELFPAY | PROVIDERS: Visit Provider Radiology Diagnostic Radiology | DX: M25.572 Pain in left ankle and joints of left foot (principal) | CPT/HCPCS: 73610 ==

== ENCOUNTER 2024-10-06 15:00 | Outpatient (AMB) | payer OTHER, SELFPAY ==
--- NOTE | 2024-10-06 15:02 | MHC.OFFVIS ---
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 No complaints. 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 [employer] Current occupational exposures/hazards: No Sexual orientation: Straight/Heterosexual Gender identity: Female Cognitive needs: No Hearing needs: No Vision needs: No Female Reproductive History Menstrual Age of Menarche: 17 Duration of menses: 3-5 days Date of last menstrual period: 09/29/24 control method: pills Total pregnancies: 0 Date of last pap smear: 11/05/21 (negarive pap smear) History of abnormal pap smear: No Review of Systems Const All systems reviewed & are unremarkable except as noted in HPI and below Card Reports as per HPI Resp Reports as per HPI GI Reports as per HPI and Reports no additional complaints Reports as per HPI Physical Exam Vital Signs: Last Vital Signs BP 128/72 10/06/24 15:06 BMI result Body Mass Index 30.3 Const General: cooperative, healthy appearing and comfortable Chest Chest palpation & inspection: normal inspection of the chest and normal palpation of entire chest wall Breast/axilla inspection: normal inspection of the breasts and normal inspection of the axillae Breast/axilla palpation: normal palpation of the breasts, normal palpation of the axillae and no axillary lymphadenopathy Resp Effort & Inspection: normal respiratory effort Auscultation: clear to auscultation bilaterally Percussion: percussion normal Cardio Palpation: normal PMI Rate: regular rate Rhythm: regular rhythm Heart sounds: no murmurs and no rubs Peripheral pulses: Peripheral pulses 2+ throughout GI Inspection: Yes normal to inspection Palpation (GI): Soft to palpation, nontender, no guarding, not rigid and No hepatosplenomegaly present Percussion: Yes normal to percussion Auscultation: normal bowel sounds Rectal Exam - Female: deferred General: Yes bladder normal to palpation External Female Exam: No lesion Speculum Exam - Vagina: normal appearance of the vagina, normal palpation, normal vaginal discharge and not erythematous Speculum Exam - Cervix: normal appearance of the cervix and normal palpation Bimanual exam- vagina & uterus: normal bimanual exam, normal palpation, uterine size normal, bladder normal to palpation, consistency normal and normal palpation Bimanual Exam- Adnexa, other: normal adnexae, no masses and no tenderness Assessment & Plan Assessment & Plan (1) Well woman exam with routine gynecological exam: Code(s): Z01.419 - Encounter for gynecological examination (general) (routine) without abnormal findings Category: Medical Plan: Pap smear done. Counseled the patient about the recommended dietary allowance of 1000 mg of Calcium & 600 IU of vitamin D. The patient was instructed to perform monthly self-breast exams and to schedule an annual exam in a year; All questions answered and the patient verbalized understanding. Instructed the patient to schedule annual exam in a year Coding Level of Care Code Est Pt Prev Care 18-39y(74282) Diagnoses Well woman exam with routine gynecological exam Z01.419
[2024-10-06 15:06] VITALS: BP 128/72; BMI 30.3
--- OUTSIDE RECORDS SUMMARY | 2024-10-06 15:44 | XMS_ITS | Encounter Summary ---
Author Organization [facility] Address [address] [place] [phone] Phone Care Team Providers Care [employer] Supervisor Name Role Phone Corrina Alvarez MD Primary Care Provider Encounter Details Date Type Department Care Team (Late st Contact Info) Description 07/22/2014 Documentation [facility] [place] Family Medicine [address] [place] [address] Family Medicine, Physician [address] [place], [place] [id number] Social History Tobacco Use Types Packs/Day Years [...] on filedocumented in this encounter Care Teams [employer] Supervisor Relationship Specialty Start Date End Date Corrina Alvarez MD [address] [place] [address] [place] [address] PCP - General 10/18/16 documented as of this encounter
== END 2024-10-06 15:19 | disposition home or self-care (01) ==
LOC: HO.HWS 15:01
PROVIDERS: PCP Nurse Practitioner Family; Visit Provider Obstetrics & Gynecology
DX: Z01.419 Encounter for gynecological examination (general) (routine) without abnormal findings (principal)
CPT/HCPCS: 99395; 99459

== ENCOUNTER 2024-10-06 15:00 | Outpatient (REF) | payer OTHER, SELFPAY | END 2024-10-06 15:01 | disposition home or self-care (01) | LOC: HO.LNP 15:00 | PROVIDERS: PCP Nurse Practitioner Family; Visit Provider Obstetrics & Gynecology | DX: Z01.419 Encounter for gynecological examination (general) (routine) without abnormal findings (principal) | CPT/HCPCS: 88175 ==